=== PATIENT | male | born 1980 | race Hispanic/Latino ===

== ENCOUNTER 2018-12-14 18:11 | Inpatient (IN) | payer BC, MEDICARE ==
[2018-12-14 18:11] VITALS: BMI 26.5
--- NOTE | 2018-12-14 18:35 | C.PDOC ---
History Of Present Illness 38 y/o male,w/PMhx of anxiety, bipolar disorder, depression, seizures (on Dilantin), and osteoporosis presents to the ER complaining of paranoid thoughts. Patient believes that somebody is outside at home and they want to hurt him. P su reports that he has these thoughts since his psychiatrist changed his medications. He does not know the name of the medications. Denies having overdosed ,suicidal ideation, homicidal ideation, depression, falls, trauma, fever,chills, CP, SOB, nausea, or vomiting. Denies any other complaints Time Seen by Provider: 12/14/18 18:35 Chief Complaint (Nursing): Psychiatric Evaluation History Per: Patient History/Exam Limitations: no limitations Onset/Duration Of Symptoms: Days Current Symptoms Are (Timing): Still Present Severity: Moderate Past Medical History Reviewed: Historical Data, Nursing Documentation, Vital Signs Vital Signs: Last Vital Signs Temp 98.7 F 12/14/18 18:27 Pulse 102 H 12/14/18 18:27 Resp 20 12/14/18 18:27 BP 118/85 12/14/18 18:27 Pulse Ox 99 12/14/18 18:27 Primary Care Provider: Non [facility] Provider, - Medical History PMH: Anxiety, Bipolar Disorder, Depression, Osteoporosis, Seizures Denies: Diabetes, Hepatitis, HIV, HTN, Chronic Kidney Disease, Sexually Transmitted Disease Other Surgeries: HX of surgeries - [facility] Procedures C.A.T. SCAN OF ABDOMEN (06/15/05) ESOPHAGOGASTRODUODENOSCOPY [EGD] W/CLOSED BIOPSY (10/19/05) MAGNETIC RESONANCE IMAGING OF BRAIN AND BRAIN STEM (12/12/04) MEDICATION MANAGEMENT (05/12/17) PERCUTAN NEEDLE BX OF LIVER (06/15/05) PSYCHIAT DRUG THERAP NEC (12/08/05) Family History: States: No Known Family Hx - Social History Hx Alcohol Use: No Hx Substance Use: No Review Of Systems Constitutional: Negative for: Fever, Chills, Weakness Eyes: Negative for: Pain, Vision Change ENT: Negative for: Ear Pain, Ear Discharge, Nose Pain, Mouth Pain, Throat Pain Cardiovascular: Negative for: Chest Pain Respiratory: Negative for: Cough, Shortness of Breath, Sputum Gastrointestinal: Negative for: Nausea, Vomiting, Abdominal Pain Genitourinary: Negative for: Dysuria, Scrotal Pain, Rash, Penile Pain Musculoskeletal: Negative for: Neck Pain, Shoulder Pain, Arm Pain, Back Pain, Hand Pain, Leg Pain Skin: Negative for: Rash, Lesions Neurological: Negative for: Weakness, Numbness, Change in Speech, Altered Mental Status, Headache Psych: Positive for: Other (paranoid thoughts). Negative for: Anxiety, Depression, Psychosis, Suicidal ideation Physical Exam - Physical Exam Appears: Well, Non-toxic, No Acute Distress Skin: Normal Color, Warm, Dry Head: Atraumatic, Normacephalic Eye(s): bilateral: Normal Inspection, PERRL, EOMI Ear(s): Bilateral: Normal Nose: Normal Oral Mucosa: Moist Tongue: Normal Appearing Lips: Normal Appearing Throat: Normal, No Erythema, No Exudate Neck: Normal, Normal ROM, No Midline Cervical Tenderness, No Paracervical Tenderness, Supple, Other (no meningeal signs) Lymphatic: Normal Exam, No Adenopathy Chest: Symmetrical Cardiovascular: Rhythm Regular Respiratory: Normal Breath Sounds, No Rales, No Rhonchi, No Wheezing Gastrointestinal/Abdominal: Normal Exam, Soft, No Tenderness, No Distention, No Guarding, No Rebound Back: Normal Inspection, No CVA Tenderness, No Vertebral Tenderness, No Decreased ROM, No Muscle Spasm, No Straight Leg Raising Extremity: Normal ROM, No Tenderness, No Pedal Edema Extremity: Bilateral: Atraumatic Neurological/Psych: Oriented x3, Normal Speech, Normal Cognition, Normal Cranial Nerves, No Cerebellar Signs, Normal Motor Gait: Steady Extremity: Right: No Drift, Left: No Drift, Upper: No Drift, Lower: No Drift ED Course And Treatment - Laboratory Results Result Diagrams: 12/14/18 18:53 12/14/18 18:53 O2 Sat by Pulse Oximetry: 99 (RA) Pulse Ox Interpretation: Normal Medical Decision Making Medical Decision Makin38 y/o male,w/PMhx of anxiety,bipolar disorder, depression, seizures (on Dilantin), and osteoporosis presents to the ER complaining of paranoid thoughts. Denies any physical complaints. No meningeal signs on exam. No tongue biting / enuresis or seizure like activity per pt. Plan: --Labs --UA --ECG --IV Fluids EKG: NSR 82 bpm no STEMI 2057 repeat neuro exam unremarkable labs reviewed, largely unremarkble medically clear Pending crisis dispo Accepted by crisis to Dr. Knowles service Disposition - Disposition Disposition: HOSPITALIZED Disposition Time: 22:04 Condition: STABLE - Clinical Impression Clinical Impression: Bipolar disorder - Scribe Statement The provider has reviewed the documentation as recorded by the Janetteibe Kelsey Morrow Provider Attestation: All medical record entries made by the Janetteibe were at my direction and personally dictated by me. I have reviewed the chart and agree that the record accurately reflects my personal performance of the history, physical exam, medical decision making, and the department course for this patient. I have also personally directed, reviewed, and agree with the discharge instructions and disposition.
[2018-12-14] MEDS ORDERED: Sodium Chloride 0.9% 1,000 ML IV ONE (18:36)
[2018-12-14 18:59] LABS: BASO % 0.1 % (0.0-2.0); EOS % 0.2 % (0.0-4.0); HEMOGLOBIN 16.7 g/dL (12.0-18.0); LYMPH # 2.1 K/uL (1.0-4.3); LYMPH % 26.1 % (20.0-40.0); MEAN CELL VOLUME 91.3 fL (80.0-94.0); MEAN CORPUSCULAR HEMOGLOBIN 31.3 pg (27.0-31.0); MEAN CORPUSCULAR HGB CONC 34.3 g/dL (33.0-37.0); MONO # 0.6 K/uL (0.0-0.8); MONO % 7.5 % (0.0-10.0); NEUT # 5.4 K/uL (1.8-7.0); NEUT % 66.1 % (50.0-75.0); NRBC % 0.1 % (0.0-2.0); RBC 5.33 Mil/uL (4.40-5.90); RED CELL DISTRIBUTION WIDTH 14.1 % (11.5-14.5); WHITE BLOOD COUNT 8.2 K/uL (4.8-10.8)
[2018-12-14 19:04] LABS: URINE BILIRUBIN NEGATIVE (NEGATIVE); URINE BLOOD 1+ (NEGATIVE); URINE CLARITY Clear (Clear); URINE COLOR Straw (YELLOW); URINE GLUCOSE (UA) 2+ mg/dL (Normal); URINE LEUKOCYTE ESTERASE NEG Leu/uL (Negative); URINE PROTEIN 1+ mg/dL (NEGATIVE); URINE UROBILINOGEN NORMAL mg/dL (0.2-1.0)
[2018-12-14 19:10] LABS: ACETAMINOPHEN < 10.0 ug/mL (10.0-30.0); SALICYLATE < 1.0 mg/dL 1
[2018-12-14 19:12] LABS: ALB/GLOB RATIO 1.7 (1.0-2.1); ALT/SGPT 20 U/L (21-72); AST/SGOT 25 U/L (17-59); BLOOD UREA NITROGEN 9 mg/dL (9-20); CALCIUM 9.6 mg/dl (8.6-10.4); GFR NON-AFRICAN AMERICAN > 60
[2018-12-14 19:14] LABS: BARBITURATES, UR NEGATIVE (NEGATIVE); BENZODIAZEPINES, UR NEGATIVE (NEGATIVE); OPIATES, UR NEGATIVE (NEGATIVE); PHENCYCLIDINE, UR NEGATIVE (NEGATIVE)
--- NOTE | 2018-12-15 00:27 | PCM.BM ---
<NeerajBradford - Last Filed: 12/15/18 00:24> Treatment Plan Problems - Problems identified on initial assessmt Anxiety Date Initiated: 12/15/18 Time Initiated: 23:35 Assessment reference: NA Status: Active Comment: Due to thoughts of paranoia Ex. People trying to hack his devices Fear Date Initiated: 12/15/18 Time Initiated: 23:35 Assessment reference: NA Status: Active Comment: Stemming from paranoid thoughts Ex. People breaking in while he sleeps Medication Nonadherence Date Initiated: 12/15/18 Time Initiated: 23:35 Assessment reference: NA Status: Active Treatment assets and liabiliti Patient Assests: cooperative, ADL independent, good support system, negotiates basic needs Patient Liabilities: live alone, other (Hx of medication nonadherence) - Milieu Protocol Maintain good personal hygiene: daily Encourage regular showers, daily Remind patient to perform daily oral care, every shift Assist patient to perform ADL's Conduct patient checks and document Observation sheet: Q15 minutes Maintain personal safety: every shift Educate patient to report safety concerns to staff, every shift Monitor environment for contraband/sharps Medication safety: Monitor for expected outcome, potential side effects: every shift, Assess barriers to learning: every shift, Assess readiness for medication education: every shift <Valentina Nieto - Last Filed: 12/15/18 10:18> - Diagnosis (1) Bipolar disorder Status: Acute Interventions: 12/15/18 10:18 * Assess/adjust medications daily and /or as needed * See patient on an individual basis 7x/week to assess level of manic behaviors and stability * Discuss risks, benefits, side effects and alternatives of medications * <Yaneth Manuel - Last Filed: 12/15/18 11:52> Family Contact Family involvement: Patient does not wish Family/SO involvement Family contact: Patient declines to allow family contact at present - Goals for Treatment Patient goals for treatment: "I want to [facility] to [facility]." Discharge/Continuing Care - Education Needs Education Needs: Patient Medication, Patient Diagnosis/Disease Process, Patient Coping Skills, Patient Placement options, Patient Community resources - Discharge Discharge Criteria: Free of paranoid thoughts, Normal sleep pattern, Ability to care for self, Reduction of target symptoms Discharge to:: Home - Treatment Team Participation Discussed with Family/SO: No Was Patient/Family/SO present at Treatment Team Meeting: Yes
--- NOTE | 2018-12-15 10:13 | PCM.PSYCH ---
Initial Psychiatric Evaluation - Initial Psychiatric Evaluation Type of Admission: Voluntary Legal Status: Capacity Chief Complaint (in patient's own words): I was feeling increasingly paranoid.' History of Present Illness and Precipitating Events: Patient is a 38 years old male, who lives alone and currently unemployed, came to the [facility] ED with increasingly paranoid and disorganized behavior. Patient reports history of few inpatient psychiatric hospitalizations. He reports of attening IOP at [facility] 3x a week for the past 5 years. He reports that he sees the psychiatrist once a month and last appointment was on 11/2018. He reports receiving a Invega Sustenna injection in his last appointment. Patient reports that he stopped taking medications because they were making him sleepy. Yesterday he became increasingly paranoid and delusional so he came to the hospital to get help. Patient appeared somewhat disorganized and internally preoccupied. He remained a poor historian. He reports paranoia that someone comes in his apartment when he goes to the program. He also reports paranoia that someone is hacking his cell phone and computer and messing up with his medications. Patient appeared paranoid and delusional and bizarre. He appeared to have loose associations. He appeared disheveled and unkempt. He reports depressed mood, feelings of hopelessness, helplessness and worthlessness. He also reports anhedonia, poor energy and poor appetite. He denies any auditory hallucinations. He denies any drinking or any substance abuse. Past medical history History of hep B, kidney stones, history of seizures Current Medications: Active Medications Generic Name Dose Route Start Last Admin Trade Name Freq PRN Reason Stop Dose Admin Hydroxyzine HCl 25 mg 12/14/18 23:48 Atarax PO Q6 PRN Anxiety Pneumococcal Polyvalent Vaccine 0.5 ml 12/17/18 10:00 Pneumovax 23 Vaccine IM 12/17/18 10:01 .ONCE ONE Trazodone HCl 50 mg 12/14/18 23:45 12/14/18 23:54 Desyrel PO Not Given HS AZAR Past Psychiatric History - Past Psychiatric History Previous Treatment History: Inpatient Pertinent Medical Hx (Current Medical&Sleep Prob, Allergies): Allergies Allergy/AdvReac Type Severity Reaction Status Date / Time No Known Allergies Allergy Verified 08/09/18 20:58 Adefovir Dipivoxil 10 mg PO DAILY 06/08/17 Divalproex [Depakote ER(ONCE DAILY)] 500 mg PO [facility] #30 ter 08/17/18 Fluoxetine HCl [Prozac] 40 mg PO DAILY #14 cap 08/17/18 Paliperidone Palmitate [Invega Sustenna] 234 mg IM Q120D 12/14/18 Phenytoin, Extended [Dilantin Kapseals] 100 mg PO BID 12/14/18 risperiDONE [RisperDAL Tab] 1 mg PO BID 12/14/18 Review of Systems - Review of Systems All systems: reviewed and no additional remarkable complaints except - Psychiatric Psychiatric: Anxiety, Irritability, Suicidal Ideation Mental Status Examination - Personal Presentation Personal Presentation: Looks stated age - Affect Affect: Constricted - Reliability in Providing Information Reliability in Providing Information: Poor, due to alteration in thoughts, Poor, due to altered mood - Speech Speech: Disorganized - Mood Mood: Depressed, Anxious - Formal Thought Process Formal Thought Process: Delusions, Paranoia, Loosening of associations, Flight of ideas - Hallucinations/Delusions Delusions: Persecution - Obsessions/Compulsions Obsessions: No Compulsions: No - Cognitive Functions Orientation: Person, Place, Situation, Time Sensorium: Alert Attention/Concentration: Attentive Abstract Thinking: Willet Estimate of Intelligence: Below average Judgement: Imparied, as evidence by: Poor judgement, Imparied, as evidence by: Lack of insight into illness - Risk Risk: Diminished functioning - Limitations Limitations: Living alone DSM 5 DX - DSM 5 DSM 5 Diagnosis: Bipolar disorder mixed severe with psychotic features Rule out schizoaffective disorder bipolar type Hep B Seizures Kidney Stone - Recommended/Plan of Treatment Treatment Recommendations and Plan of Treatment: Bipolar disorder mixed severe with psychotic features Rule out schizoaffective disorder bipolar type Hep B Seizures Kidney Stone CBT Separation Supportive therapy and group therapy Depakote for mood Risperdal for psychosis Cogentin for EPS Trazodone for insomnia Hydroxyzine for anxiety Phenytoin for seizures Ativan for severe anxiety
--- NOTE | 2018-12-15 14:36 | CARD ---
APPROVED REPORT Date of service: 12/14/2018 EKG Measurement Heart [id number] <Conclusion> Normal sinus rhythm Possible Left atrial enlargement Borderline ECG
--- NOTE | 2018-12-16 12:02 | PCM.PYCHPN ---
Psychiatric Progress Note - Psychiatric Progress Note Patient seen today, length of contact: 16 min Patient Chief Complaint: "Tired" Problems Identified/Issues Discussed: The pt is seen, chart reviewed, case is discussed with staff. The pt is compliant with medications and reports no side-effects. Depakote is increased Symptoms are improving but needs more time to stabilize and to avoid relapse. Support given, psycho-education provided. He is still odd and isolated Medication Change: Yes (increase depakote) Medical Record Reviewed: Yes Mental Status Examination - Cognitive Function Orientation: Person, Place, Situation, Time Memory: Intact Attention: WNL Concentration: Poor Association: WNL Fund of Knowledge: WNL - Mood Mood: Depressed, Anxious - Affect Affect: Constricted - Speech Speech: Appropriate - Formal Thought Process Formal Thought Process: Delusions, Paranoia - Suicidal Ideation Suicidal Ideation: No - Homicidal Ideation Homicidal Ideation: No Goal/Treatment Plan - Goal/Treatment Plan Need for Continued Stay: Discharge may exacerbated symptoms, Severe functional impairment Progress Toward Problem(s) and Goals/Treatment Plan: Continue medications Support and psychoeducation daily Attend groups and activities daily Individual therapy After care planning by MARTÍN and the team
[2018-12-17] MEDS ORDERED: Pneumococcal 23-Valent Vaccine IM ONE (10:00)
--- NOTE | 2018-12-18 10:51 | PCM.PYCHPN ---
Psychiatric Progress Note - Psychiatric Progress Note Patient seen today, length of contact: 16 min Patient Chief Complaint: I was feeling increasingly paranoid.' Medication Change: Yes (increase depakote) Medical Record Reviewed: Yes Mental Status Examination - Cognitive Function Orientation: Person, Place, Situation, Time Memory: Intact Attention: WNL Concentration: Poor Association: WNL Fund of Knowledge: WNL - Mood Mood: Depressed, Anxious - Affect Affect: Constricted - Speech Speech: Appropriate - Formal Thought Process Formal Thought Process: Delusions, Paranoia - Suicidal Ideation Suicidal Ideation: No - Homicidal Ideation Homicidal Ideation: No Goal/Treatment Plan - Goal/Treatment Plan Need for Continued Stay: Discharge may exacerbated symptoms, Severe functional impairment Progress Toward Problem(s) and Goals/Treatment Plan: Bipolar disorder mixed severe with psychotic features Rule out schizoaffective disorder bipolar type Hep B Seizures Kidney Stone CBT Separation Supportive therapy and group therapy Depakote for mood Risperdal for psychosis Cogentin for EPS Trazodone for insomnia Hydroxyzine for anxiety Phenytoin for seizures Ativan for severe anxiety
[2018-12-19 07:25] VITALS: O2SAT 98
[2018-12-21 06:14] VITALS: BP 110/68; PULSE 52; RESP 20; TEMP 97.5
--- NOTE | 2018-12-21 10:24 | PCM.PYCHDC ---
Mental Status Examination - Mental Status Examination Orientation: Person, Place, Situation, Time Memory: Intact Mood: Neutral Affect: Constricted Speech: Soft Attention: WNL Concentration: WNL Association: WNL Fund of Knowledge: WNL Formal Thought Process: No Impairment Description of patient's judgement and insight: good, fair Psychotic Thoughts and Behaviors: denies any AVH Suicidal Ideation: No Current Homicidal Ideation?: No Discharge Summary - Discharge Note Reason for Hospitalization: Patient is a 38 years old male, who lives alone and currently unemployed, came to the [facility] ED with increasingly paranoid and disorganized behavior. Patient reports history of few inpatient psychiatric hospitalizations. He reports of attening IOP at [facility] 3x a week for the past 5 years. He reports that he sees the psychiatrist once a month and last appointment was on 11/2018. He reports receiving a Invega Sustenna injection in his last appointment. Patient reports that he stopped taking medications because they were making him sleepy. Yesterday he became increasingly paranoid and delusional so he came to the hospital to get help. Patient appeared somewhat disorganized and internally preoccupied. He remained a poor historian. He reports paranoia that someone comes in his apartment when he goes to the program. He also reports paranoia that someone is hacking his cell phone and computer and messing up with his medications. Patient appeared paranoid and delusional and bizarre. He appeared to have loose associations. He appeared disheveled and unkempt. He reports depressed mood, feelings of hopelessness, helplessness and worthlessness. He also reports anhedonia, poor energy and poor appetite. He denies any auditory hallucinations. He denies any drinking or any substance abuse. Consultations:: List each consultation separately and include: 1. Reason for request. 2. Findings. 3. Follow-up Summary of Hospital Course include:: 1. Description of specific treatment plan utilized for patients during their course of treatmen. 2. Summarize the time- course for resolution of acute symptoms and/or regressed behaviors. 3. Describe issues identified and worked on during hospitalization. 4. Describe medication utilized. 5. Describe medical problems identified and treated. 6. Reassessment of suicide risk Summary of Hospital Course: Patient is a 38 years old male, who lives alone and currently unemployed, came to the [facility] ED with increasingly paranoid and disorganized behavior. Patient reports history of few inpatient psychiatric hospitalizations. He reports of attening IOP at [facility] 3x a week for the past 5 years. He reports that he sees the psychiatrist once a month and last appointment was on 11/2018. He reports receiving a Invega Sustenna injection in his last appointment. Patient reports that he stopped taking medications because they were making him sleepy. Yesterday he became increasingly paranoid and delusional so he came to the hospital to get help. Patient appeared somewhat disorganized and internally preoccupied. He remained a poor historian. He reports paranoia that someone comes in his apartment when he goes to the program. He also reports paranoia that someone is hacking his cell phone and computer and messing up with his medications. Patient appeared paranoid and delusional and bizarre. He appeared to have loose associations. He appeared disheveled and unkempt. He reports depressed mood, feelings of hopelessness, helplessness and worthlessness. He also reports anhedonia, poor energy and poor appetite. He denies any auditory hallucinations. He denies any drinking or any substance abuse. Past medical history History of hep B, kidney stones, history of seizures - Diagnosis (1) Bipolar disorder Current Visit: Yes Status: Acute - Final Diagnosis (DSM 5) Condition upon Discharge: STABLE DSM 5: Bipolar disorder mixed severe with psychotic features Rule out schizoaffective disorder bipolar type Hep B Seizures Kidney Stone Disposition: HOME/ ROUTINE Follow-up Treatment Plan: Bipolar disorder mixed severe with psychotic features Rule out schizoaffective disorder bipolar type Hep B Seizures Kidney Stone CBT Separation Supportive therapy and group therapy Depakote for mood Risperdal for psychosis Cogentin for EPS Trazodone for insomnia Hydroxyzine for anxiety Phenytoin for seizures Ativan for severe anxiety Prescriptions/Medication Reconciliation: Benztropine [Cogentin] 1 mg PO BID #60 tab Divalproex [Depakote ER(ONCE DAILY)] 500 mg PO BID #60 ter Phenytoin, Extended [Dilantin] 100 mg PO TID #90 cer risperiDONE [RisperDAL Tab] 1 mg PO BID #60 tab traZODone [Desyrel] 50 mg PO HS #30 tab - Smoking Cessation Smoking Cessation Medication prescribed: No - Antipsychotic Medications Pt discharged on 2 or more routine antipsychotic medications: No
== END 2018-12-21 15:18 | disposition home or self-care (01) | DRG 885 ==
LOC: C.ER 18:11 → C.9E 21:57 → C.5E 22:25
PROVIDERS: ADMIT Psychiatry & Neurology Psychiatry; ATTEND Psychiatry & Neurology Psychiatry
PROC: GZ3ZZZZ Medication Management (ICD-10-PCS; principal; 2018-12-14)
PROC: GZHZZZZ Group Psychotherapy (ICD-10-PCS; 2018-12-14)
PROC: GZ56ZZZ Individual Psychotherapy, Supportive (ICD-10-PCS; 2018-12-14)
DX: F31.64 Bipolar disorder, current episode mixed, severe, with psychotic features (principal); F41.9 Anxiety disorder, unspecified; G47.00 Insomnia, unspecified; G40.909 Epilepsy, unspecified, not intractable, without status epilepticus; B18.1 Chronic viral hepatitis B without delta-agent; M81.0 Age-related osteoporosis without current pathological fracture; Z87.442 Personal history of urinary calculi; Z79.899 Other long term (current) drug therapy